=== PATIENT | female | born 1965 | race Two or more races ===

== ENCOUNTER → 2024-09-22 | Outpatient (CLI) | payer MEDICAID, SELFPAY ==
--- NOTE | 2024-09-22 09:30 | XR_ITS ---
Examination: Screening digital mammography, bilateral Computer aided detection 3-D breast Tomosynthesis, bilateral Date and time of exam: September 22, 2024 0903 hours Compared to mammograms dating to June 20, 2019 Indication: Screening Technique: Nonmagnified MLO, CC views of the breasts to been obtained, reconstructed from 3-D Tomosynthesis images. R2 computer aided detection program utilized for evaluation of suspicious masses and/or abnormal calcifications. 3-D Tomosynthesis images obtained. Findings: Scattered areas of fibroglandular density 20 mm focal asymmetry retroareolar region left breast which may relate to the patient's history of prior abscess Impression: BI-RADS Category 0: Incomplete: Need additional imaging evaluation Recommend follow-up spot tomographic views retroareolar region left breast to assess focal asymmetry as well as left breast sonography to complete the workup
== END | disposition home or self-care (01) ==
PROVIDERS: PCP Nurse Practitioner Family; Referring Provider Nurse Practitioner Family; Visit Provider Nurse Practitioner Family
DX: Z12.31 Encounter for screening mammogram for malignant neoplasm of breast (principal); R92.8 Other abnormal and inconclusive findings on diagnostic imaging of breast; N64.89 Other specified disorders of breast
CPT/HCPCS: 77063; 77067

== ENCOUNTER → 2024-10-17 | Outpatient (CLI) | payer MEDICAID, SELFPAY ==
--- NOTE | 2024-10-17 13:45 | XR_ITS ---
Examination: Breast ultrasound, unilateral, left complete Date and time of exam: October 17, 2024 1332 hrs. Indications: Asymmetric retroareolar region left breast on mammogram September 22, 2024 Technique: Real-time baker scale ultrasonographic imaging performed left breast including all 4 quadrants as well as nipple retroareolar and axillary region. Findings: No cystic or solid mass 4.3 cm left axillary lymph node Impression: BI-RADS Category 3: Probably benign findings Recommend 1 additional 6 month left breast sonogram follow-up to document stability of enlarged left axillary lymph node
--- NOTE | 2024-10-17 14:15 | XR_ITS ---
Examination: Diagnostic digital mammography, unilateral, left Computer aided detection 3-D breast Tomosynthesis, unilateral Date and time of exam: 10/17/2024, 1:42 PM Comparisons: September 2021 through September 2024 Indications: Further evaluation of retroareolar focal asymmetry Technique: Nonmagnified MLO, CC views of the left breast have been obtained, reconstructed from 3-D Tomosynthesis images. R2 computer aided detection program utilized for evaluation of suspicious masses and/or abnormal calcifications. 3-D Tomosynthesis images obtained. Technologist: Findings: There are scattered areas of fibroglandular density. Benign-appearing retroareolar focal asymmetry. No evidence of suspicious masses or suspicious calcifications. Impression: BI-RADS category 2: Benign findings Recommend 1 year follow-up mammogram
== END | disposition home or self-care (01) ==
LOC: CDIM 13:13
PROVIDERS: PCP Nurse Practitioner Family; Referring Provider Nurse Practitioner Family; Visit Provider Nurse Practitioner Family
DX: R92.332 Mammographic heterogeneous density, left breast (principal); R59.0 Localized enlarged lymph nodes
CPT/HCPCS: 76641; 77061; 77065; G0279

== ENCOUNTER 2024-12-18 11:30 | Emergency (ER) | payer MEDICAID, SELFPAY ==
[2024-12-18 11:32] VITALS: BMI 26.4
[2024-12-18 11:53] VITALS: BP 142/93; PULSE 102; RESP 16; TEMP 38.8; O2SAT 100
--- NOTE | 2024-12-18 12:02 | XR_ITS ---
Examination: PA lateral chest 2 views TECHNIQUE: Upright PA lateral chest 2 views Date and time: December 18, 2024 1224 hours Comparison January 24, 2022 INDICATIONS: Tachycardia fever swelling beginning 3 days ago FINDINGS: Normal heart size Lungs are clear. The osseous structures are intact IMPRESSION: No active disease
--- NOTE | 2024-12-18 12:02 | EKG_ITS ---
[facility] Test Date: 2024-12-18 Pat Name: OSCAR CARLTON Department: Room: - Gender: Female Cis Coordinator: : 1965 Requested By: Celestine Barreto Order Number: [id number] Reading MD: Celestine Barreto Measurements Intervals [place] Rate: 106 P: 68 CA: 140 QRS: -49 QRSD: 93 T: 85 QT: 351 QTc: 467 Interpretive Statements SINUS TACHYCARDIA POSSIBLE LEFT ATRIAL ENLARGEMENT [-0.1mV P-WAVE IN V1/V2] LEFT ANTERIOR FASCICULAR BLOCK [QRS AXIS <= -45, QR IN I, RS IN II] POSSIBLE LEFT VENTRICULAR HYPERTROPHY [VOLTAGE CRITERIA PLUS LAE OR QRS WIDENING] NONSPECIFIC T-WAVE ABNORMALITY No previous ECG available for comparison /[id number]/[email or web address]/[id number].pdf
--- NOTE | 2024-12-18 12:09 | PD.EDARRY ---
ED Arrhythmia Palp. RME/HPI General Chief Complaint: Arrhythmia/Palpitations Stated Complaint: VERTIGO, DIZZY, HIGH BP, FAST HR (136) Time Seen by Provider: 12/18/24 11:44 Source: patient Arrival date/time: 12/18/24 11:30 Mode of arrival: ambulatory Limitations: no limitations RME / HPI RME / HPI narrative: 51-year-old female with history of chronic kidney disease, palpitations, hypertension and anxiety comes to the emergency department after 2 days occasionally feeling of heart racing. Her mica inspector is Dr. Shelton and patient was fairly recently started on losartan due to enlarged heart . Patient was noted to have a temperature of 101.8 in triage, which she was not febrile. Denies any cough, chest pain, fever, diarrhea, nausea or vomiting. MD complaint: heart racing Onset (ago): day(s) (2) Duration: intermittent Severity: moderate Related Data Home Medications ?Medication ?Instructions ?Recorded ?Confirmed meclizine 25 mg tablet (Dramamine 25 mg PO ##0 02/19/09 II) Citalopram Hydrobromide QDAY PRN AGITATION OR ANXIETY ##0 03/01/17 (Citalopram Hbr) Promethazine Hcl (Promethazine) 12.5 PRN PRN NAUSEA OR VOMITING ##0 03/01/17 alprazolam 1 mg tablet (Xanax) 1 mg PO BID PRN AGITATION OR 03/01/17 ANXIETY #0 tabs amlodipine 10 mg tablet (Norvasc) 10 mg PO QDAY #0 tabs 03/01/17 meloxicam 7.5 mg tablet QDAY ##0 03/01/17 sucralfate 1 gram tablet (Carafate) 1 gm PO BID #0 tabs 03/01/17 Hydrocodone Bit/Acetaminophen 1 tab PO BID PRN PAIN ##60 03/02/17 (Hydrocodone-Apap 10/325 Mg Tab) Metformin Hcl 1 tab PO BID Diabetes ##60 03/02/17 albuterol sulfate 90 mcg/actuation 2 puff inhalation Q6HR PRN 03/02/17 aerosol inhaler (Ventolin HFA) SHORTNESS OF BREATH ##18 cholecalciferol (vitamin D3) 25 1,000 unit PO QDAY osteoporosis #0 03/02/17 mcg (1,000 unit) capsule (Vitamin tabs D3) glipizide 5 mg tablet 5 mg PO BIDAC Diabetes #0 tabs 03/02/17 metoprolol tartrate 25 mg tablet 25 mg PO BID High Blood Pressure 03/02/17 #0 tabs mirtazapine 15 mg tablet 1 tab PO HS PRN SLEEPLESSNESS ##30 03/02/17 omeprazole 20 mg tablet,delayed 1 tab PO QDAY GERD ##30 03/02/17 release Allergies Allergy/AdvReac Type Severity Reaction Status Date / Time No Known Allergies Allergy Verified 12/18/24 11:34 ED Exam General Limitations: Present no limitations Course Orders Category Date Time Status 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 Pullman STAT Care 12/18/24 12:02 Active Continuous Pulse Oximetry STAT Care 12/18/24 12:02 Active EKG (ED ONLY) *Do not use* NOW Care 12/18/24 12:02 Active In and Out Catheter X1PRN Care 12/18/24 12:02 Active Insert IV NOW Care 12/18/24 12:02 Active EKG (ED Only) Stat Exams 12/18/24 12:02 Ordered XR chest 2V Stat Exams 12/18/24 12:02 Ordered B-Type Natriuretic Peptide Stat Lab 12/18/24 12:02 Ordered Blood Culture (Lab) Stat Lab 12/18/24 12:02 Ordered CBC Stat Lab 12/18/24 12:02 Ordered Comprehensive Metabolic Panel Stat Lab 12/18/24 12:02 Ordered LDH (Lactate Dehydrogenase) Stat Lab 12/18/24 12:02 Ordered Lactate (Lactic Acid) Stat Lab 12/18/24 12:02 Ordered Lipase Stat Lab 12/18/24 12:02 Ordered Magnesium Stat Lab 12/18/24 12:02 Ordered Partial Thromboplastin Time Stat Lab 12/18/24 12:02 Ordered Phosphorous Stat Lab 12/18/24 12:02 Ordered Procalcitonin Stat Lab 12/18/24 12:02 Ordered Prothrombin Time with INR Stat Lab 12/18/24 12:02 Ordered Troponin I Stat Lab 12/18/24 12:02 Ordered Urinalysis Stat Lab 12/18/24 12:02 Ordered Urine Culture Stat Lab 12/18/24 12:02 Ordered Acetaminophen Tab [Tylenol ES Tab] Med 12/18/24 12:04 Discontinued 1,000 mg PO X1 ONE Sodium Chloride 0.9% 1000 ml [Ns] 1,572 ml Med 12/18/24 12:02 Active IV 1,572 mls/hr Vital Signs Vital signs: Vital Signs Temperature 101.8 F H 12/18/24 11:53 Pulse Rate 102 H 12/18/24 11:53 Respiratory Rate 16 12/18/24 11:53 Blood Pressure 142/93 H 12/18/24 11:53 Pulse Oximetry (%) 100 12/18/24 11:53 Oxygen Delivery Method Room Air 12/18/24 11:53 Arrhythmia/Palpitations Medications / Prescriptions Medication administrations:: Medication Administration History Sodium Chloride (Ns) 1,572 mls @ 1,572 mls/hr 30 ml/kg infuse over 60 min (1572 ml) IV .Q1H ONE Stop: 12/18/24 13:01 Discontinued Medications Acetaminophen (Acetaminophen 500 Mg Tablet) 1,000 mg PO X1 ONE Stop: 12/18/24 12:05 Discharge Plan Prescriptions/Referrals Prescriptions/Med Rec: No Action meclizine [Dramamine II] 25 MG tablet 25 mg PO Qty: 0 alprazolam [Xanax] 1 MG tablet 1 mg PO BID PRN (Reason: AGITATION OR ANXIETY) Qty: 0 meloxicam 7.5 MG tablet QDAY Qty: 0 amlodipine [Norvasc] 10 MG tablet 10 mg PO QDAY Qty: 0 Citalopram Hydrobromide (Citalopram Hbr) 10 MG tablet QDAY PRN (Reason: AGITATION OR ANXIETY) Qty: 0 Promethazine Hcl (Promethazine) 25 MG tablet 12.5 PRN PRN (Reason: NAUSEA OR VOMITING) Qty: 0 sucralfate [Carafate] 1 G tablet 1 gm PO BID Qty: 0 mirtazapine 15 MG tablet 1 tab PO HS PRN (Reason: SLEEPLESSNESS) Qty: 30 albuterol sulfate [Ventolin HFA] 200 PUFF/INH HFA aerosol inhaler 2 puff Inhalation Q6HR PRN (Reason: SHORTNESS OF BREATH) Qty: 18 glipizide 5 MG tablet 5 mg PO BIDAC Qty: 0 cholecalciferol (vitamin D3) [Vitamin D3] 1,000 UNIT tablet 1,000 unit PO QDAY Qty: 0 metoprolol tartrate 25 MG tablet 25 mg PO BID Qty: 0 omeprazole 20 MG tablet,delayed release (DR/EC) 1 tab PO QDAY Qty: 30 Hydrocodone Bit/Acetaminophen (Hydrocodone-Apap 10/325 Mg Tab) 1 UDTAB tablet 1 tab PO BID PRN (Reason: PAIN) Qty: 60 Metformin Hcl 500 MG tablet 1 tab PO BID Qty: 60 Patient/Caregiver Discharge Instructions Print Language: Macedonian
[2024-12-18 12:33] LABS: Lactate (Lactic Acid) 3.4 mMol/L (0.4-2.0)
[2024-12-18 12:37] VITALS: TEMP 38.8
[2024-12-18] MEDS: ACETAMINOPHEN 500 MG TABLET 1000 MG PO (12:37)
[2024-12-18 12:38] LABS: Basophils # (Auto) 0.1 Thou/mm3 (0.0-0.2); Basophils % (Auto) 1 % (0-2.5); Eosinophils % (Auto) 0 % (0-10); Hematocrit 45.5 % (36.0-46.0); Hemoglobin 16.2 g/dL (12.0-16.0); Immature Granulocytes % (Auto) 0 % (0-0); Immature Granulocytes Auto 0.04 Thou/mm3 (0.00-0.00); Lymphocytes # (Auto) 1.7 Thou/mm3 (1.0-4.8); Lymphocytes % (Auto) 14 % (10-50); Mean Corpuscular HGB Conc 35.6 g/dl (31.0-37.0); Mean Corpuscular Hemoglobin 30.7 pg (25.0-35.0); Mean Corpuscular Volume 86 fL (80-100); Monocytes # (Auto) 0.6 Thou/mm3 (0.0-0.8); Monocytes % (Auto) 5 % (0-12); Neutrophils # (Auto) 9.6 Thou/mm3 (1.8-7.7); Neutrophils % (Auto) 80 % (37-80); Nucleated Red Blood Cell % 0 /100 WBC (0); Platelet Count 224 Thou/mm3 (140-440); RDW Standard Deviation 38.7 fL (36.4-46.3); Red Blood Count 5.28 Miln/mm3 (4.00-5.20)
[2024-12-18] MEDS: SODIUM CHLORIDE 0.9% 1000 ML 1,572 ML 1572 ML IV (12:38)
--- NOTE | 2024-12-18 12:45 | PD.EDADULT ---
ED General RME/HPI General Chief complaint: Arrhythmia/Palpitations Stated complaint: VERTIGO, DIZZY, HIGH BP, FAST HR (136) Time Seen by Provider: 12/18/24 11:44 Arrival date/time: 12/18/24 11:30 Limitations: no limitations RME / HPI RME / HPI narrative: DR. BARRETO MAIN ED EVALUATION: 51-year-old female with history of chronic kidney disease, palpitations, hypertension and anxiety comes to the emergency department after 2 days occasionally feeling of heart racing. Her well control instructor is Dr. Shelton and patient was fairly recently started on losartan due to enlarged heart . Patient was noted to have a temperature of 101.8 in triage, which she was not febrile. Denies any cough, chest pain, fever, diarrhea, nausea or vomiting. Duration: intermittent MD complaint: heart racing Onset (ago): day(s) (2) Severity: moderate Related Data Home Medications ?Medication ?Instructions ?Recorded ?Confirmed meclizine 25 mg tablet (Dramamine 25 mg PO ##0 02/19/09 II) Citalopram Hydrobromide QDAY PRN AGITATION OR ANXIETY ##0 03/01/17 (Citalopram Hbr) Promethazine Hcl (Promethazine) 12.5 PRN PRN NAUSEA OR VOMITING ##0 03/01/17 alprazolam 1 mg tablet (Xanax) 1 mg PO BID PRN AGITATION OR 03/01/17 ANXIETY #0 tabs amlodipine 10 mg tablet (Norvasc) 10 mg PO QDAY #0 tabs 03/01/17 meloxicam 7.5 mg tablet QDAY ##0 03/01/17 sucralfate 1 gram tablet (Carafate) 1 gm PO BID #0 tabs 03/01/17 Hydrocodone Bit/Acetaminophen 1 tab PO BID PRN PAIN ##60 03/02/17 (Hydrocodone-Apap 10/325 Mg Tab) Metformin Hcl 1 tab PO BID Diabetes ##60 03/02/17 albuterol sulfate 90 mcg/actuation 2 puff inhalation Q6HR PRN 03/02/17 aerosol inhaler (Ventolin HFA) SHORTNESS OF BREATH ##18 cholecalciferol (vitamin D3) 25 1,000 unit PO QDAY osteoporosis #0 03/02/17 mcg (1,000 unit) capsule (Vitamin tabs D3) glipizide 5 mg tablet 5 mg PO BIDAC Diabetes #0 tabs 03/02/17 metoprolol tartrate 25 mg tablet 25 mg PO BID High Blood Pressure 03/02/17 #0 tabs mirtazapine 15 mg tablet 1 tab PO HS PRN SLEEPLESSNESS ##30 03/02/17 omeprazole 20 mg tablet,delayed 1 tab PO QDAY GERD ##30 03/02/17 release Allergies Allergy/AdvReac Type Severity Reaction Status Date / Time No Known Allergies Allergy Verified 12/18/24 11:34 Review of Systems Review of Systems Systems Reviewed: All systems reviewed, normal except as documented Past Medical History Social History SMOKING STATUS: Never smoker SUBSTANCE USE: does not use ALCOHOL: Never ED Exam General Limitations: Present no limitations General appearance: Present alert and in no apparent distress Head Head exam: Present atraumatic, normocephalic and normal inspection Eye Eye exam: Present normal appearance, PERRL and EOMI ENT ENT exam: Present normal exam, normal oropharynx and mucous membranes moist Neck Neck exam: Present normal inspection, full ROM and trachea midline Chest Chest inspection: Present normal inspection and symmetric chest wall rise Respiratory Respiratory exam: Present normal lung sounds bilaterally Cardiovascular Cardiovascular exam: Present tachycardia and normal heart sounds Abdominal Exam Abdominal exam: Present soft and normal bowel sounds Extremities Exam Extremities exam: Present normal inspection and full ROM Back Exam Back exam: Present normal inspection and full ROM Neurological Exam Neurological exam: Present alert, oriented X3 and CN II-XII intact Psychiatric Psychiatric exam: Present normal affect and normal mood Skin Skin exam: Present warm, dry, intact and normal color Course Quality Measures none Orders Category Date Time Status 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 STAT Care 12/18/24 12:02 Active Continuous Pulse Oximetry STAT Care 12/18/24 12:02 Completed EKG (ED ONLY) *Do not use* NOW Care 12/18/24 12:02 Completed Insert IV NOW Care 12/18/24 12:02 Active EKG (ED Only) Stat Exams 12/18/24 12:02 Draft XR chest 2V Stat Exams 12/18/24 12:02 Completed B-Type Natriuretic Peptide Stat Lab 12/18/24 12:27 Completed Blood Culture (Lab) Stat Lab 12/18/24 12:27 Received CBC Stat Lab 12/18/24 12:27 Completed Comprehensive Metabolic Panel Stat Lab 12/18/24 12:27 Completed LDH (Lactate Dehydrogenase) Stat Lab 12/18/24 12:27 Completed Lactate (Lactic Acid) Stat Lab 12/18/24 12:27 Results Lipase Stat Lab 12/18/24 12:27 Completed Magnesium Stat Lab 12/18/24 12:27 Completed Partial Thromboplastin Time Stat Lab 12/18/24 12:40 Completed Phosphorous Stat Lab 12/18/24 12:27 Completed Procalcitonin Stat Lab 12/18/24 12:27 Completed Prothrombin Time with INR Stat Lab 12/18/24 12:40 Completed Troponin I Stat Lab 12/18/24 12:27 Completed Urinalysis Stat Lab 12/18/24 13:37 Completed Urine Culture Stat Lab 12/18/24 13:40 Received Acetaminophen Tab [Tylenol ES Tab] Med 12/18/24 12:04 Discontinued 1,000 mg PO X1 ONE Sodium Chloride 0.9% 1000 ml [Ns] 1,572 ml Med 12/18/24 12:02 Discontinued IV 1,572 mls/hr Reevaluation(s) Reevaluation #1: Patient is back to baseline, HR is 80. Patient requesting to go home. Patient is not septic. Patient remains clinically stable throughout the emergency department visit. Re-assessment at the time of disposition demonstrates that the patient is in no acute distress. We reviewed all the results, analysis, and treatment plans. Patient is amenable to discharge. Strict return precautions were outlined. Patient was discharged in stable condition. Time: 14:48 Vital Signs Vital signs: Vital Signs Temperature 101.8 F H 12/18/24 11:53 Pulse Rate 102 H 12/18/24 11:53 Respiratory Rate 16 12/18/24 11:53 Blood Pressure 142/93 H 12/18/24 11:53 Pulse Oximetry (%) 100 12/18/24 11:53 Oxygen Delivery Method Room Air 12/18/24 11:53 Discharge Plan Plan Patient Disposition: HOME (Self Care) Prescriptions/Referrals Prescriptions/Med Rec: No Action meclizine [Dramamine II] 25 MG tablet 25 mg PO Qty: 0 alprazolam [Xanax] 1 MG tablet 1 mg PO BID PRN (Reason: AGITATION OR ANXIETY) Qty: 0 meloxicam 7.5 MG tablet QDAY Qty: 0 amlodipine [Norvasc] 10 MG tablet 10 mg PO QDAY Qty: 0 Citalopram Hydrobromide (Citalopram Hbr) 10 MG tablet QDAY PRN (Reason: AGITATION OR ANXIETY) Qty: 0 Promethazine Hcl (Promethazine) 25 MG tablet 12.5 PRN PRN (Reason: NAUSEA OR VOMITING) Qty: 0 sucralfate [Carafate] 1 G tablet 1 gm PO BID Qty: 0 mirtazapine 15 MG tablet 1 tab PO HS PRN (Reason: SLEEPLESSNESS) Qty: 30 albuterol sulfate [Ventolin HFA] 200 PUFF/INH HFA aerosol inhaler 2 puff Inhalation Q6HR PRN (Reason: SHORTNESS OF BREATH) Qty: 18 glipizide 5 MG tablet 5 mg PO BIDAC Qty: 0 cholecalciferol (vitamin D3) [Vitamin D3] 1,000 UNIT tablet 1,000 unit PO QDAY Qty: 0 metoprolol tartrate 25 MG tablet 25 mg PO BID Qty: 0 omeprazole 20 MG tablet,delayed release (DR/EC) 1 tab PO QDAY Qty: 30 Hydrocodone Bit/Acetaminophen (Hydrocodone-Apap 10/325 Mg Tab) 1 UDTAB tablet 1 tab PO BID PRN (Reason: PAIN) Qty: 60 Metformin Hcl 500 MG tablet 1 tab PO BID Qty: 60 Referrals: Radha Lopez NP [Primary Care Provider] - In 1 week Problem List Clinical Impression: Acute dehydration Patient/Caregiver Discharge Instructions Discharge Activity: activity as tolerated Education Materials: ED Dehydration (Adult) Print Language: Bolivian Stand Alone Forms: Joselin Award Info., Patient Portal Info Letter MDM Clinical Information Provided by patient Medical Records Reviewed [facility] Meds/Rx Considered, not Ordered None Labs/Rad/Tests considered, not Ordered None Chronic Illness/Social Conditions Add or document further as needed: Chronic kidney disease, palpitations, hypertension and anxiety EKG EKG Interpretation narrative: My interpretation: EKG performed at 1209 hours, sinus tachycardia, rate 106, no STEMI Imaging Radiology reports / interpretation(s): Procedure(s): XR chest 2V Accession Number(s): [id number] cc: Celestine Barreto MD; Rafael Cook MD; Radha Lopez NP~ Examination: PA lateral chest 2 views TECHNIQUE: Upright PA lateral chest 2 views Date and time: December 18, 2024 1224 hours Comparison January 24, 2022 INDICATIONS: Tachycardia fever swelling beginning 3 days ago FINDINGS: Normal heart size Lungs are clear. The osseous structures are intact IMPRESSION: No active disease Dictated By: Rafael Cook MD Medication Administration(s) Medication Administration History Discontinued Medications Acetaminophen (Acetaminophen 500 Mg Tablet) 1,000 mg PO X1 ONE Stop: 12/18/24 12:05 Last Admin: 12/18/24 12:37 Dose: 1,000 mg Documented By: VINICIUS Sodium Chloride (Ns) 1,572 mls @ 1,572 mls/hr 30 ml/kg infuse over 60 min (1572 ml) IV .Q1H ONE Stop: 12/18/24 13:01 Last Infusion: 12/18/24 14:35 Dose: Infused Documented By: Admin: 12/18/24 12:38 Dose: 1,572 mls/hr Documented By: VINICIUS Diagnosis Differential diagnosis: palpitations, anxiety, sinus tachycardia, artial flutter and SVT Most likely dx, and/or detailed dx discussion: Acute dehydration Dispositon Disposition: Discharge Home
[2024-12-18 12:47] VITALS: PULSE 86
[2024-12-18 13:04] LABS: B-Type Natriuretic Peptide 32 pg/mL (0-100)
[2024-12-18 13:15] LABS: Alanine Aminotransferase 28 U/L (10-49); Albumin, Serum 4.9 gm/dL (3.5-5.0); Albumin/Globulin Ratio 1.7 (1.2-2.2); Alkaline Phosphatase 117 U/L (46-116); Anion Gap 16 (7-16); BUN/Creatinine Ratio 17 Ratio (12-20); Bilirubin,Total 0.8 mg/dL (0.3-1.2); Blood Urea Nitrogen 25 mg/dL (9-23); Calcium 10.1 mg/dL (8.3-10.6); Calcium (Corrected) 10.1 mg/dL (8.5-10.1); Carbon Dioxide 18.4 mMol/L (20.0-31.0); Chloride 110 mMol/L (98-107); Creatinine (Component) 1.5 mg/dL (0.6-1.3); Estimated Creatinine Clearance 37.3 mL/min (>60); Globulin 2.9 gm/dL (2.3-3.5); Glucose 90 mg/dL (74-106); LDH (Lactate Dehydrogenase) 278 U/L (120-246); Lipase 50 U/L (12-53); Magnesium 2.1 mg/dL (1.6-2.6); Osmolality,Calculated 291 (275-295); Phosphorous 2.2 mg/dL (2.4-5.1); Potassium 3.8 mMol/L (3.4-5.1); Procalcitonin 0.05 ng/ml (0.0-0.49); Sodium 144 mMol/L (136-145); Total Protein 7.8 gm/dL (5.7-8.2); Troponin I < 0.020 ng/mL (0.0-0.045); eGFR 40 See Note
[2024-12-18 13:35] LABS: Partial Thromboplastin Time 23.8 Seconds (22.0-36.0); Prothrombin Time 10.5 Seconds (9.0-12.2)
[2024-12-18 13:37] VITALS: TEMP 36.6
[2024-12-18 13:46] LABS: Collection Type, Urine Clean Catch
[2024-12-18 14:00] LABS: Bacteria,Urine Rare; Bilirubin,Urine Negative (Negative); Blood,Urine Negative (Negative); Clarity,Urine Turbid (Clear/Hazy); Color,Urine Yellow (Lt Yel-Yel); Glucose, Urine 3+ (Negative); Hyaline Casts,Urine < 1 /hpf (0-1); Ketones,Urine 1+ (Negative); Leukocyte Esterase,Urine Positive (Negative); Nitrite,Urine Negative (Negative); Protein,Urine Trace (Neg - Trace); RBC,Urine 4 /hpf (0-3); Specific Gravity,Urine 1.016 (1.001-1.035); Squamous Epithelial Cell,Urine 9 /hpf (0-5); Urobilinogen,Urine Negative mg/dL (0.0-1.0); WBC,Urine 32 /hpf (0-5)
[2024-12-18 14:20] VITALS: BP 129/75; PULSE 80; RESP 20; TEMP 36.8; O2SAT 100
[2024-12-18 15:01] VITALS: BP 157/91; PULSE 96; RESP 16; TEMP 36.9; O2SAT 99
[2024-12-18 15:31] LABS: Reflex Lactate? Y
== END 2024-12-18 15:01 | disposition home or self-care (01) ==
PROVIDERS: Emergency Provider Emergency Medicine; PCP Nurse Practitioner Family
DX: E86.0 Dehydration (principal); R00.0 Tachycardia, unspecified; I44.4 Left anterior fascicular block; I13.10 Hypertensive heart and chronic kidney disease without heart failure, with stage 1 through stage 4 chronic kidney disease, or unspecified chronic kidney disease; N18.9 Chronic kidney disease, unspecified
CPT/HCPCS: 36415; 71046; 80053; 81001; 83605; 83615; 83690; 83735; 83880; 84100; 84145; 84484; 85025; 85610; 85730; 87040; 87077; 87086; 87186; 93005; 96360; 96361; 99284; J7030; A9270

== ENCOUNTER → 2025-02-23 | Outpatient (CLI) | payer MEDICAID, SELFPAY ==
--- NOTE | 2025-02-23 07:30 | XR_ITS ---
Examination: MRI brain without intravenous contrast. Date and time of exam: February 23, 2025 0752 hours INDICATIONS: Daily headaches and dizziness 2.5 years Technique: Multiple axial and sagittal images of the brain obtained. Siemens high-resolution 1.5 Nella short bore scanners utilized. Sagittal sections, T1-weighted, TR 500, TE 14, are performed. Axial sections proton-density and T2-weighted have been obtained. Inversion recovery axial images, TR 9, 260, TE 111, TI 2500. Diffusion weighted images, axial sections, TR 4800, TE 128, B value 1000 Axial sections, ADC map, TR 4800, TE 128 Findings: Enlargement of the sella turcica is not present. The optic chiasm and infundibular are not remarkable. Prepontine and interpeduncular cisterns are not enlarged. There is no localized enlargement of the medulla or latrice. Fourth ventricle and cerebellar tonsils appear normal in position. No subacute area of hemorrhage density is seen. Mass in the cerebellopontine angle region is not evident. Globes symmetrical. Orbital musculature including medial lateral rectus muscles do not exhibit abnormality. Diffusion-weighted images demonstrate no focus of restricted diffusion. Increased white matter signal prominent punctate foci increased signal in the white matter Mass effect upon the ventricular system is not identified. Impression: Prominent punctate foci increased signal in the white matter, differential would include demyelinating disease, accelerated chronic microvascular white matter change, clinical correlation advised Bilateral mastoiditis
--- NOTE | 2025-02-23 08:28 | XR_ITS ---
Examination: Shoulder bilateral, 6 views Technique: Shoulder AP internal rotation, AP external rotation, Y view each shoulder total 6 views Exam date and time :February 23, 2025 0833 hours INDICATIONS: Bilateral shoulder pain 10 years. 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
== END | disposition home or self-care (01) ==
PROVIDERS: Referring Provider Psychiatry & Neurology Neurology; Visit Provider Psychiatry & Neurology Neurology
DX: M19.012 Primary osteoarthritis, left shoulder (principal); M19.011 Primary osteoarthritis, right shoulder; R90.82 White matter disease, unspecified; H70.93 Unspecified mastoiditis, bilateral
CPT/HCPCS: 70551; 73030

== ENCOUNTER → 2025-03-05 | Outpatient (CLI) | payer MEDICAID, SELFPAY ==
--- NOTE | 2025-03-05 13:30 | XR_ITS ---
Examination: Retroperitoneal ultrasound, complete Technique: Multiple high resolution grayscale images of the retroperitoneum obtained, including kidneys and bladder. Exam date and time:March 05, 2025, 1254 hours INDICATIONS: Acute renal insufficiency on laboratory examination today FINDINGS: Right kidney 9.3 cm cortex 1.9 cm Left kidney 9.3 cm cortex 1.7 cm Moderate renal parenchymal scar formation No hydronephrosis No bladder mass No bladder calculi, bladder prevoid volume 105 cc 0 cc post void IMPRESSION: Small kidneys with renal cortical thinning Moderate bilateral renal parenchymal scar formation
== END | disposition home or self-care (01) ==
LOC: CDIM 12:32
PROVIDERS: PCP Nurse Practitioner Family; Referring Provider Internal Medicine; Visit Provider Internal Medicine
DX: N28.89 Other specified disorders of kidney and ureter (principal)
CPT/HCPCS: 76770